=== PATIENT | female | born 1965 | race American Indian/Alaskan Native ===

== ENCOUNTER 2019-07-31 15:01 | Emergency (ER) | payer BC ==
--- NOTE | 2019-07-31 15:18 | Event Note ---
ED Screening Note Date of service: 07/31/19 Time: 15:11 ED Screening Note: This is a 54 y.o. F. that presents to the ER with anxiety and depression. Patient spouse states they discussed divorce in the car and patient stated she will kill her self. She tried to jump out of the car to attempt suicide. This initial assessment/diagnostic orders/clinical plan/treatment(s) is/are subject to change based on patients health status, clinical progression and re- assessment by fellow clinical providers in the ED. Further treatment and workup at subsequent clinical providers discretion. Patient/guardian urged not to elope from the ED as their condition may be serious if not clinically assessed and managed. Initial orders include: Labs
[2019-07-31 16:03] LABS: Bilirubin,Urine NEG (Negative); Blood,Urine NEG (Negative); Color,Urine Straw (Yellow); Hyaline Casts,Urine 1 /LPF; Protein,Urine <15 mg/dL mg/dL (Negative); Urobilinogen,Urine < 2.0 mg/dL (<2.0)
[2019-07-31 16:15] LABS: Amphetamine Screen,Urine PRESUMPTIVE NEGATIVE; Benzodiazepines Screen,Urine PRESUMPTIVE NEGATIVE; Cannabinoid Screen,Urine PRESUMPTIVE NEGATIVE; Cocaine Screen,Urine PRESUMPTIVE NEGATIVE; Methadone Screen,Urine PRESUMPTIVE NEGATIVE; Opiate Screen,Urine PRESUMPTIVE NEGATIVE
[2019-07-31 16:48] LABS: Basophils % (Auto) 0.6 % (0.0-1.8); Eosinophils # (Auto) 0.1 K/mm3 (0.0-0.4); Eosinophils % (Auto) 1.5 % (0.0-4.3); Hematocrit 36.5 % (30.3-42.9); Lymphocytes # (Auto) 1.4 K/mm3 (1.2-5.4); Lymphocytes % (Auto) 21.1 % (13.4-35.0); Mean Corpuscular HGB Conc 33 % (30-34); Mean Corpuscular Volume 78 fl (79-97); Monocytes # (Auto) 0.4 K/mm3 (0.0-0.8); Monocytes % (Auto) 5.7 % (0.0-7.3); Red Blood Count 4.71 M/mm3 (3.65-5.03); Red Cell Distribution Width 15.2 % (13.2-15.2)
[2019-07-31 16:58] LABS: Platelet Count 193 K/mm3 (140-440)
[2019-07-31 17:09] LABS: BUN/Creatinine Ratio 17; Blood Urea Nitrogen 17 mg/dL (7-17); Calcium 8.8 mg/dL (8.4-10.2); Hemolysis Index 11
[2019-07-31] MEDS ORDERED: LORazepam 1 MG TAB PO ONE (20:50)
--- NOTE | 2019-07-31 23:30 | Emergency Department Report ---
<GERRY PAGE - Last Filed: 07/31/19 23:30> ED Psych HPI - General Chief Complaint: Psych Stated Complaint: CHEST PAIN/DEPRESSED Time Seen by Provider: 07/31/19 15:07 Source: patient, family Mode of arrival: Ambulatory Limitations: No Limitations - History of Present Illness Initial Comments: CC: "I had a panic attack." HPI. Mrs. Harvey is a 54 yo female with history of hypertension insulin-dependent diabetes who presents with anxiety, depression and suicide attempt. Over the past month she has been extremely depressed after realizing that her of 31 years desires a divorce. She has been devastated. She has been unable to work. She has had insomnia depressed mood. Today during a conversation with her , she developed palpitations and shortness of breath. She had chest tightness. She felt she could not breath.The drove her to the hospital. As they continue to discuss divorce, stated that Mrs. Harvey that she will kill herself. She attempted to jump out of the car while it was in motion. Patient stated that she "just panicked". MD Complaint: suicidal ideation, feels depressed -: Gradual, month(s) (1), This evening (quickly escalated this evening but has been severely depressed over the last month unable to work) Associated Psychiatric Symptoms: depression History of same: No Quality: constant Improves With: none Worsens With: none Context: significant life stressor (surprise divorce after 31 years of marriage) Associated Symptoms: shortness of breath, other (palpitations chest pain) If Self Harm: admits thoughts of, has acted on plan - Related Data Home Medications Medication Instructions Recorded Confirmed Last Taken NIFEdipine XL [Procardia Xl] 60 mg PO QDAY 04/19/16 07/31/19 04/18/16 DULoxetine 20 mg PO QDAY 07/31/19 07/31/19 Unknown Losartan Potassium 100 mg PO QDAY 07/31/19 07/31/19 Unknown NovoLOG Flexpen 0 units SQ TID 07/31/19 07/31/19 Unknown Tresiba Flextouch U-100 42 units SQ QDAY 07/31/19 07/31/19 Unknown Allergies Allergy/AdvReac Type Severity Reaction Status Date / Time No Known Allergies Allergy Verified 07/31/19 15:05 ED Review of Systems Comment: All other systems reviewed and negative Constitutional: denies: fever, malaise Respiratory: shortness of breath Cardiovascular: chest pain Psychiatric: depression, suicidal thoughts ED Past Medical Hx - Past Medical History Previous Medical History?: Yes Hx Hypertension: Yes Hx Diabetes: Yes Additional medical history: thyroid/anemia - Social History Smoking Status: Never Smoker Substance Use Type: None Other Social History: She works for the [employer], she has 12-year-old daughter at home - Medications Home Medications: Home Medications Medication Instructions Recorded Confirmed Last Taken Type NIFEdipine XL [Procardia Xl] 60 mg PO QDAY 04/19/16 07/31/19 04/18/16 History DULoxetine 20 mg PO QDAY 07/31/19 07/31/19 Unknown History Losartan Potassium 100 mg PO QDAY 07/31/19 07/31/19 Unknown History NovoLOG Flexpen 0 units SQ TID 07/31/19 07/31/19 Unknown History Tresiba Flextouch U-100 42 units SQ QDAY 07/31/19 07/31/19 Unknown History ED Physical Exam - General Limitations: No Limitations General appearance: alert, in no apparent distress, other (tearful severely upset) - Head Head exam: Present: atraumatic, normocephalic - Eye Eye exam: Present: normal appearance - ENT ENT exam: Present: mucous membranes moist - Neck Neck exam: Present: normal inspection, full ROM. Absent: tenderness, meningismus - Respiratory Respiratory exam: Present: normal lung sounds bilaterally. Absent: respiratory distress, wheezes, rales, rhonchi - Cardiovascular Cardiovascular Exam: Present: regular rate, normal rhythm, normal heart sounds. Absent: systolic murmur, diastolic murmur, rubs, gallop - GI/Abdominal GI/Abdominal exam: Present: soft, normal bowel sounds. Absent: distended, tenderness, guarding, rebound - Extremities Exam Extremities exam: Present: normal inspection - Back Exam Back exam: Present: normal inspection - Neurological Exam Neurological exam: Present: alert, oriented X3 - Psychiatric Psychiatric exam: Present: depressed, suicidal ideation - Skin Skin exam: Present: warm, dry, intact, normal color. Absent: rash ED Medical Decision Making - Lab Data Result diagrams: 07/31/19 16:24 07/31/19 16:24 Laboratory Results - last 24 hr 07/31/19 07/31/19 07/31/19 16:24 16:24 16:24 WBC RBC Hgb Hct MCV MCH MCHC RDW Plt Count Lymph % (Auto) [place] % (Auto) Eos % (Auto) Baso % (Auto) Lymph # [place] # Eos # Baso # Seg Neutrophils % Seg Neutrophils # Sodium 144 Potassium 4.2 Chloride 105.0 Carbon Dioxide 23 Anion Gap 20 BUN 17 Creatinine 1.0 Estimated GFR > 60 BUN/Creatinine Ratio 17 Glucose 150 H Calcium 8.8 Urine Color Urine Turbidity Urine pH Ur Specific [place] Urine Protein Urine Glucose (UA) Urine Ketones Urine Blood Urine Nitrite Urine Bilirubin Urine Urobilinogen Ur Leukocyte Esterase Urine WBC (Auto) Urine RBC (Auto) U Epithel Cells (Auto) Hyaline Casts Salicylates < 0.3 L Urine Opiates Screen Urine Methadone Screen Acetaminophen < 5.0 L Ur Barbiturates Screen Ur Phencyclidine Scrn Ur Amphetamines Screen U Benzodiazepines Scrn Urine Cocaine Screen U Marijuana (THC) Screen Drugs of Abuse Note Plasma/Serum Alcohol 07/31/19 07/31/19 07/31/19 16:24 16:24 Unknown WBC 6.6 RBC 4.71 Hgb 12.0 Hct 36.5 MCV 78 L MCH 25 L MCHC 33 RDW 15.2 Plt Count 193 Lymph % (Auto) 21.1 [place] % (Auto) 5.7 Eos % (Auto) 1.5 Baso % (Auto) 0.6 Lymph # 1.4 [place] # 0.4 Eos # 0.1 Baso # 0.0 Seg Neutrophils % 71.1 H Seg Neutrophils # 4.7 Sodium Potassium Chloride Carbon Dioxide Anion Gap BUN Creatinine Estimated GFR BUN/Creatinine Ratio Glucose Calcium Urine Color Straw Urine Turbidity Clear Urine pH 6.0 Ur Specific [place] 1.013 Urine Protein <15 mg/dl Urine Glucose (UA) Neg Urine Ketones Neg Urine Blood Neg Urine Nitrite Neg Urine Bilirubin Neg Urine Urobilinogen < 2.0 Ur Leukocyte Esterase Neg Urine WBC (Auto) 1.0 Urine RBC (Auto) 2.0 U Epithel Cells (Auto) 2.0 Hyaline Casts 1 Salicylates Urine Opiates Screen Urine Methadone Screen Acetaminophen Ur Barbiturates Screen Ur Phencyclidine Scrn Ur Amphetamines Screen U Benzodiazepines Scrn Urine Cocaine Screen U Marijuana (THC) Screen Drugs of Abuse Note Plasma/Serum Alcohol < 0.01 07/31/19 Unknown WBC RBC Hgb Hct MCV MCH MCHC RDW Plt Count Lymph % (Auto) [place] % (Auto) Eos % (Auto) Baso % (Auto) Lymph # [place] # Eos # Baso # Seg Neutrophils % Seg Neutrophils # Sodium Potassium Chloride Carbon Dioxide Anion Gap BUN Creatinine Estimated GFR BUN/Creatinine Ratio Glucose Calcium Urine Color Urine Turbidity Urine pH Ur Specific [place] Urine Protein Urine Glucose (UA) Urine Ketones Urine Blood Urine Nitrite Urine Bilirubin Urine Urobilinogen Ur Leukocyte Esterase Urine WBC (Auto) Urine RBC (Auto) U Epithel Cells (Auto) Hyaline Casts Salicylates Urine Opiates Screen Presumptive negative Urine Methadone Screen Presumptive negative Acetaminophen Ur Barbiturates Screen Presumptive negative Ur Phencyclidine Scrn Presumptive negative Ur Amphetamines Screen Presumptive negative U Benzodiazepines Scrn Presumptive negative Urine Cocaine Screen Presumptive negative U Marijuana (THC) Screen Presumptive negative Drugs of Abuse Note Disclamer Plasma/Serum Alcohol - EKG Data 07/31/19 23:30 EKG obtained 1605 Normal sinus rhythm rate 60 bpm normal axis normal intervals no ST-T signs of ischemia enlarged P waves LVH according to aVL criteria - Medical Decision Making Mrs. Harvey is a 51-year-old female who presents with severe depression and with suicide attempt. She is not coping well with the news of a surprise divorce. She attempted to jump out of a moving car this evening. She stated to her that she was going to kill herself. I have placed Mrs. Harvey on involuntary hold using 1013 protocol Form. She is medically clear for psych iatric care. I do not suspect acute cardiac disease or arrhythmia as a cause of her chest pain shortness of breath. I do suspect that she did have anxiety reaction due to severe stress. Awaiting treatment and evaluation plan by psychiatric team. ED Disposition Clinical Impression: Acute depression, Suicidal ideation, Suicide attempt Disposition: [id number] PSY HOSP/PSY UNIT Condition: Stable <CANDELARIA PAGE - Last Filed: 08/01/19 16:30> ED Review of Systems ROS: Stated complaint: CHEST PAIN/DEPRESSED Other details as noted in HPI ED Course Vital Signs 07/31/19 07/31/19 07/31/19 15:17 16:14 16:16 Temperature 98.7 F Pulse Rate 104 H 66 63 Respiratory 18 16 13 Rate Blood Pressure 237/110 192/92 Blood Pressure [right arm] O2 Sat by Pulse 95 96 97 Oximetry 12/15/19 12/15/19 12/15/19 16:32 16:33 16:46 Temperature 97.9 F Pulse Rate 67 86 Respiratory 15 18 Rate Blood Pressure 192/92 Blood Pressure 192/92 [right arm] O2 Sat by Pulse 97 97 Oximetry 07/31/19 07/31/19 07/31/19 17:00 17:16 17:30 Temperature Pulse Rate 75 90 102 H Respiratory 18 16 17 Rate Blood Pressure 192/92 184/94 184/94 Blood Pressure [right arm] O2 Sat by Pulse 98 97 Oximetry 07/31/19 07/31/19 07/31/19 17:46 18:00 18:16 Temperature Pulse Rate 87 Respiratory 20 19 15 Rate Blood Pressure 184/94 184/94 184/94 Blood Pressure [right arm] O2 Sat by Pulse Oximetry 07/31/19 07/31/19 07/31/19 18:30 18:46 19:00 Temperature Pulse Rate Respiratory 17 17 15 Rate Blood Pressure 184/94 184/94 184/94 Blood Pressure [right arm] O2 Sat by Pulse Oximetry 07/31/19 07/31/19 08/01/19 19:16 19:30 01:00 Temperature 97.9 F Pulse Rate 94 H Respiratory 14 20 18 Rate Blood Pressure 184/94 184/94 Blood Pressure 181/94 [right arm] O2 Sat by Pulse 97 Oximetry 08/01/19 08/01/19 07:00 10:05 Temperature 97.4 F L Pulse Rate 66 66 Respiratory 18 Rate Blood Pressure 175/91 Blood Pressure 175/91 [right arm] O2 Sat by Pulse 97 Oximetry - Reevaluation(s) Reevaluation #1: 08/01/19 16:29 Patient has been accepted to [facility] ED Medical Decision Making - Lab Data Result diagrams: 07/31/19 16:24 07/31/19 16:24 Critical care attestation.: If time is entered above; I have spent that time in minutes in the direct care of this critically ill patient, excluding procedure time. ED Disposition Is pt being admited?: No Does the pt Need Aspirin: No Time of Disposition: 16:30
[2019-08-01 08:19] VITALS: BP 175/91
[2019-08-01] MEDS ORDERED: amLODIPine 10 MG TAB PO SCH (10:00)
[2019-08-01] MEDS ORDERED: LOSARTAN 50 MG TAB PO SCH (10:00)
== END 2019-08-01 18:00 ==
LOC: ED 15:01
DX: F32.9 Major depressive disorder, single episode, unspecified (principal); T14.91XA Suicide attempt, initial encounter; R06.02 Shortness of breath; R07.9 Chest pain, unspecified; I10 Essential (primary) hypertension; E11.9 Type 2 diabetes mellitus without complications
CPT/HCPCS: 36415; 80048; 80307; 80320; 81001; 82550; 82962; 84484; 85025; 93005; 93010; 99284; G0480